=== PATIENT | male | born 1960 | race Caucasian/White ===

== ENCOUNTER 2018-11-03 12:01 | Outpatient (CLI) | payer SELFPAY ==
[2015-02-06 19:30] VITALS: O2SAT 95
== END 2018-11-03 12:02 | disposition home or self-care (01) | DRG 554 ==
LOC: CONVCARE 12:01
PROVIDERS: ATTEND Orthopaedic Surgery
DX: M19.042 Primary osteoarthritis, left hand (principal); M19.041 Primary osteoarthritis, right hand; M79.645 Pain in left finger(s); M79.644 Pain in right finger(s)
CPT/HCPCS: 73140